=== PATIENT | female | born 1950 | race Two or more races ===

== ENCOUNTER 2023-09-30 16:46 | Observation (INO) | payer OTHER ==
[2023-09-30 17:22] VITALS: BMI 25.7
[2023-09-30 21:28] LABS: BASO % 0.3 % (0-2.0); EOS % 0.3 % (0-4.5); HEMOGLOBIN 11.6 GM/dL (10.7-15.3); LYMPH % 17.6 % (8-40); MCH 25.8 pg (25.7-33.7); MCHC 32.4 g/dl (32.0-36.0); MEAN CELL VOLUME 79.6 fl (80-96); MEAN PLT VOLUME 7.4 fl (7.5-11.1); MONO % 5.4 % (3.8-10.2); NEUT % 76.4 % (42.8-82.8); PLATELET COUNT 464 10^3/uL (134-434); RBC 4.52 M/mm3 (3.60-5.2); RDW 15.1 % (11.6-15.6)
[2023-09-30 21:35] LABS: INR 1.07 (0.83-1.09); PROTHROMBIN TIME (PATIENT) 12.1 SEC (9.7-13.0)
[2023-09-30 21:38] LABS: ACTIVATED PTT 25.3 SECONDS (25.2-36.5)
[2023-09-30 21:48] LABS: POTASSIUM 4.6 mmol/L (3.5-5.1)
[2023-09-30 21:50] LABS: CALCIUM 9.1 mg/dL (8.5-10.1)
[2023-09-30 21:51] LABS: ALBUMIN 2.9 g/dl (3.4-5.0); BLOOD UREA NITROGEN 25.1 mg/dL (7-18)
[2023-09-30 21:55] LABS: CREATININE 1.2 mg/dL (0.55-1.3); TOT PROT 6.7 g/dl (6.4-8.2)
[2023-09-30 21:56] LABS: BILIRUBIN,TOTAL 0.5 mg/dL (0.2-1)
[2023-10-01 01:35] VITALS: TEMP 98.6
[2023-10-01] MEDS: POLYETHYLENE GLYCOL (HEALTHYLAX) 3350 17 GM PACKET PO SCH (06:34)
[2023-10-01] MEDS: PANTOPRAZOLE 40 MG TABLET PO ONE (06:34)
[2023-10-01] MEDS ORDERED: INSULIN ASPART SLIDING SCALE (NOVOLOG) 1 VIAL SQ ONE ×3 (08:16→12:54)
[2023-10-01] MEDS: INSULIN ASPART SLIDING SCALE (NOVOLOG) 1 VIAL SQ SCH (08:20)
[2023-10-01] MEDS ORDERED: PANTOPRAZOLE 40 MG TABLET PO ONE (09:23)
[2023-10-01] MEDS ORDERED: ACETAMINOPHEN 325 MG TABLET (FP) ONE (09:23)
[2023-10-01] MEDS ORDERED: INSULIN (LEVEMIR) 100 UNITS/ML UNITS SQ ONE (09:24)
[2023-10-01] MEDS: PANTOPRAZOLE 40 MG TABLET PO SCH (09:30)
[2023-10-01] MEDS: ACETAMINOPHEN 325 MG TABLET (FP) PO PRN (09:30)
[2023-10-01] MEDS: INSULIN (LEVEMIR) 100 UNITS/ML UNITS SQ SCH (09:30)
[2023-10-01] MEDS ORDERED: ENOXAPARIN NA (PORCINE) 40 MG/0.4 ML DISP.SYRIN SQ SCH (10:00)
[2023-10-01 11:50] LABS: BASO % 1.3 % (0-2.0); EOS % 0.9 % (0-4.5); HEMATOCRIT 34.6 % (32.4-45.2); HEMOGLOBIN 11.3 GM/dL (10.7-15.3); LYMPH % 31.3 % (8-40); MCH 26.3 pg (25.7-33.7); MCHC 32.7 g/dl (32.0-36.0); MEAN CELL VOLUME 80.4 fl (80-96); MEAN PLT VOLUME 7.1 fl (7.5-11.1); MONO % 4.9 % (3.8-10.2); NEUT % 61.6 % (42.8-82.8); PLATELET COUNT 418 10^3/uL (134-434); RDW 14.8 % (11.6-15.6); WHITE BLOOD COUNT 10.9 K/mm3 (4.0-10.0)
[2023-10-01 12:19] LABS: POTASSIUM 4.5 mmol/L (3.5-5.1)
[2023-10-01 12:22] LABS: ALBUMIN 2.8 g/dl (3.4-5.0); BLOOD UREA NITROGEN 22.1 mg/dL (7-18); CALCIUM 9.1 mg/dL (8.5-10.1); MAGNESIUM 2.1 mg/dL (1.8-2.4)
[2023-10-01 12:27] LABS: BILIRUBIN,TOTAL 0.6 mg/dL (0.2-1); TOT PROT 6.3 g/dl (6.4-8.2)
[2023-10-01 15:09] VITALS: BP 133/96; PULSE 81; RESP 18
== END 2023-10-01 15:20 | disposition home or self-care (01) ==
LOC: JER 16:46 → JERBED 10-01 00:02
PROVIDERS: ADMIT Internal Medicine; ATTEND Internal Medicine
PROC: 3E013VG Introduction of Insulin into Subcutaneous Tissue, Percutaneous Approach (ICD-10-PCS; principal; 2023-10-01)
DX: R42 Dizziness and giddiness (principal); G31.84 Mild cognitive impairment of uncertain or unknown etiology; E11.9 Type 2 diabetes mellitus without complications; I10 Essential (primary) hypertension; N28.9 Disorder of kidney and ureter, unspecified; W18.39XA Other fall on same level, initial encounter; Y93.89 Activity, other specified; Y92.002 Bathroom of unspecified non-institutional (private) residence as the place of occurrence of the external cause; M19.90 Unspecified osteoarthritis, unspecified site; R29.6 Repeated falls; R55 Syncope and collapse; Z29.89 Encounter for other specified prophylactic measures
CPT/HCPCS: 0241U-QW; 36415; 70450-TC; 71260-TC; 72125-TC; 74177-TC; 80053; 82962; 83036; 83735; 84100; 84484; 85025; 85610; 85730; 93005; 93010; 93306-TC; 96372; 99285-25; G0378; Q9967

== ENCOUNTER 2024-05-26 12:40 | Inpatient (IN) | payer OTHER ==
[2024-05-26 16:42] LABS: ABSOLUTE IMMATURE GRANULOCYTES 0.02 x10^3/uL (0.0-0.031); BASOPHILS # 0.02 x10^3/uL (0.01-0.08); EOSINOPHIL % 1.3 % (0.7-5.8); HEMATOCRIT 41.5 % (34.1-44.9); HEMOGLOBIN 12.8 g/dL (11.2-15.7); MCHC 30.8 g/dl (32.2-35.5); MEAN CELL VOLUME 87.7 fl (79.4-94.8); MEAN PLT VOLUME 9.6 fl (9.4-12.3); MONOCYTE # 0.48 x10^3/uL (0.24-0.86); MONOCYTE % 6.5 % (4.7-12.5); PLATELET COUNT # 420 x10^3/uL (182-369); RDW 13.4 % (12.4-16.6)
[2024-05-26 16:50] LABS: INR 1.14 (0.83-1.09); PROTHROMBIN TIME (PATIENT) 12.4 SEC (9.7-13.0)
[2024-05-26 16:53] LABS: ACTIVATED PTT 29.7 SECONDS (25.2-36.5)
[2024-05-26 17:04] LABS: POTASSIUM 4.4 mmol/L (3.5-5.1)
[2024-05-26 17:05] LABS: CALCIUM 9.7 mg/dL (8.5-10.1)
[2024-05-26 17:06] LABS: ALBUMIN 3.3 g/dl (3.4-5.0); BLOOD UREA NITROGEN 13.7 mg/dL (7-18)
[2024-05-26 17:09] LABS: CREATININE 0.8 mg/dL (0.55-1.3)
[2024-05-26 17:10] LABS: BILIRUBIN,TOTAL 0.2 mg/dL (0.2-1)
[2024-05-26 18:37] LABS: INR 1.22 (0.83-1.09); PROTHROMBIN TIME (PATIENT) 13.3 SEC (9.7-13.0)
[2024-05-26 19:12] LABS: GAMMA GLUTAMYL TRANSPEPTIDASE 132 U/L (5-85)
[2024-05-26] MEDS: INSULIN ASPART SLIDING SCALE (NOVOLOG) 1 VIAL SQ SCH (21:55)
[2024-05-26] MEDS ORDERED: ENOXAPARIN NA (PORCINE) 40 MG/0.4 ML DISP.SYRIN SQ ONE (21:56)
[2024-05-26 21:59] LABS: EPI CELLS 14 /uL (0-25.1); HYALINE CASTS 0 /uL (0-3.1); URINE APPEARANCE CLEAR; URINE BACTERIA 50 /uL (0-1359); URINE BILIRUBIN NEGATIVE (NEGATIVE); URINE COLOR YELLOW; URINE GLUCOSE (UA) NEGATIVE (NEGATIVE); URINE KETONE NEGATIVE (NEGATIVE); URINE LEUK ESTERASE 1+ (NEGATIVE); URINE NITRITE NEGATIVE (NEGATIVE); URINE PROTEIN 1+ (NEGATIVE); URINE RBC 10 /uL (0-23.9); URINE UROBILINOGEN 0.2 mg/dL (0.2-1.0); URINE WBC 59 /uL (0-25.8)
[2024-05-26] MEDS: SODIUM CHLORIDE 1,000 ML IV SCH (22:07)
[2024-05-26] MEDS: ENOXAPARIN NA (PORCINE) 40 MG/0.4 ML DISP.SYRIN SQ SCH (22:08)
[2024-05-27 08:05] LABS: ABSOLUTE IMMATURE GRANULOCYTES 0.02 x10^3/uL (0.0-0.031); BASOPHILS # 0.03 x10^3/uL (0.01-0.08); EOSINOPHILS # 0.07 x10^3/uL (0.04-0.36); HEMATOCRIT 36.9 % (34.1-44.9); HEMOGLOBIN 11.5 g/dL (11.2-15.7); MCHC 31.2 g/dl (32.2-35.5); MEAN CELL VOLUME 87.6 fl (79.4-94.8); MEAN PLT VOLUME 9.6 fl (9.4-12.3); MONOCYTE % 7.4 % (4.7-12.5); PLATELET COUNT # 385 x10^3/uL (182-369); RDW 13.4 % (12.4-16.6)
[2024-05-27 08:36] LABS: POTASSIUM 4.5 mmol/L (3.5-5.1)
[2024-05-27 08:38] LABS: BLOOD UREA NITROGEN 13.4 mg/dL (7-18); CALCIUM 9.3 mg/dL (8.5-10.1)
[2024-05-27 08:39] LABS: ALBUMIN 2.8 g/dl (3.4-5.0); MAGNESIUM 1.8 mg/dL (1.8-2.4)
[2024-05-27 08:41] LABS: BILIRUBIN,DIRECT 0.2 mg/dL (0.0-0.2)
[2024-05-27 08:42] LABS: CREATININE 0.8 mg/dL (0.55-1.3); PHOSPHOROUS 3.7 mg/dL (2.5-4.9)
[2024-05-27 08:43] LABS: BILIRUBIN,TOTAL 0.4 mg/dL (0.2-1)
[2024-05-27] MEDS: PANTOPRAZOLE 40 MG TABLET PO SCH (09:08)
[2024-05-27] MEDS: POLYETHYLENE GLYCOL (HEALTHYLAX) 3350 17 GM PACKET PO SCH (09:08)
[2024-05-27 11:57] LABS: HCV DIAGNOSTIC IN-HOUSE W/RFLX NON-REACTIVE (NONREACTIVE)
[2024-05-27 15:53] VITALS: BMI 21.0
[2024-05-28 07:35] VITALS: RESP 18
[2024-05-28 10:05] VITALS: BP 105/60; PULSE 79; TEMP 97.3
[2024-05-28 11:29] LABS: ABSOLUTE IMMATURE GRANULOCYTES 0.04 x10^3/uL (0.0-0.031); BASOPHILS # 0.03 x10^3/uL (0.01-0.08); EOSINOPHIL % 3.3 % (0.7-5.8); EOSINOPHILS # 0.25 x10^3/uL (0.04-0.36); HEMATOCRIT 41.1 % (34.1-44.9); HEMOGLOBIN 12.7 g/dL (11.2-15.7); MCHC 30.9 g/dl (32.2-35.5); MEAN CELL VOLUME 88.4 fl (79.4-94.8); MEAN PLT VOLUME 9.5 fl (9.4-12.3); MONOCYTE # 0.47 x10^3/uL (0.24-0.86); MONOCYTE % 6.2 % (4.7-12.5); PLATELET COUNT # 328 x10^3/uL (182-369); RDW 13.4 % (12.4-16.6)
[2024-05-28 11:48] LABS: POTASSIUM 4.2 mmol/L (3.5-5.1)
[2024-05-28 11:49] LABS: ALBUMIN 2.7 g/dl (3.4-5.0)
[2024-05-28 11:51] LABS: CALCIUM 9.2 mg/dL (8.5-10.1)
[2024-05-28 11:52] LABS: ALBUMIN 2.8 g/dl (3.4-5.0); BILIRUBIN,DIRECT 0.1 mg/dL (0.0-0.2); BLOOD UREA NITROGEN 10.7 mg/dL (7-18); MAGNESIUM 1.7 mg/dL (1.8-2.4)
[2024-05-28 11:54] LABS: BILIRUBIN,TOTAL 0.2 mg/dL (0.2-1); TOT PROT 6.1 g/dl (6.4-8.2)
[2024-05-28 11:55] LABS: CREATININE 0.8 mg/dL (0.55-1.3)
[2024-05-28 11:56] LABS: BILIRUBIN,TOTAL 0.2 mg/dL (0.2-1); TOT PROT 6.2 g/dl (6.4-8.2)
== END 2024-05-28 17:00 | disposition home or self-care (01) ==
LOC: JER 12:40 → JERBED 17:45 → J7W 05-27 02:49 → OBSVTOIN 05-27 08:19
PROVIDERS: ADMIT Internal Medicine
DX: K71.8 Toxic liver disease with other disorders of liver (principal); T36.6X5A Adverse effect of rifampicins, initial encounter; C50.911 Malignant neoplasm of unspecified site of right female breast; E11.9 Type 2 diabetes mellitus without complications; I10 Essential (primary) hypertension; R29.6 Repeated falls; R79.89 Other specified abnormal findings of blood chemistry; Z22.7 Latent tuberculosis; K52.89 Other specified noninfective gastroenteritis and colitis; K59.00 Constipation, unspecified
CPT/HCPCS: 36415; 71046-TC-FY; 74176-TC; 74181-TC; 76705-TC; 80053; 80076; 81003; 82140; 82248; 82550; 82962; 82977; 83690; 83735; 84100; 84484; 85025; 85610; 85730; 86480; 86704; 86708; 86803; 87340; 87517; 93005; 93010; 99285-25; G0378

== ENCOUNTER 2024-10-23 11:21 | Observation (INO) | payer OTHER ==
[2024-10-23 11:46] VITALS: BMI 22.6
[2024-10-23 13:32] LABS: MCHC 30.7 g/dl (32.2-35.5); MEAN CELL VOLUME 84.1 fl (79.4-94.8); MEAN PLT VOLUME 10.9 fl (9.4-12.3); RDW 15.8 % (12.4-16.6)
[2024-10-23] MEDS: LACTATED RINGERS SOLUTION 1000 ML INFUS.BAG IV ONE (13:36)
[2024-10-23 13:50] LABS: GLUCOSE,RANDOM 149.0 mg/dL (74-106)
[2024-10-23 13:51] LABS: TOT PROT 6.2 g/dl (6.4-8.2)
[2024-10-23 13:52] LABS: CO2 26.0 mmol/L (21-32)
[2024-10-23 13:53] LABS: ALK PHOS 193.0 U/L (40-150)
[2024-10-23 13:56] LABS: CREATININE 0.96 mg/dL (0.55-1.3); SGOT/AST 27.0 U/L (5-34); SGPT/ALT 37.0 U/L (0-55)
[2024-10-23 16:24] LABS: EPI CELLS 28 /uL (0-25.1); HYALINE CASTS 1 /uL (0-3.1); URINE APPEARANCE CLEAR; URINE BACTERIA 66 /uL (0-1359); URINE BILIRUBIN NEGATIVE (NEGATIVE); URINE COLOR YELLOW; URINE GLUCOSE (UA) NEGATIVE (NEGATIVE); URINE KETONE TRACE (NEGATIVE); URINE LEUK ESTERASE NEGATIVE (NEGATIVE); URINE NITRITE NEGATIVE (NEGATIVE); URINE PROTEIN TRACE (NEGATIVE); URINE RBC 26 /uL (0-23.9); URINE UROBILINOGEN 0.2 mg/dL (0.2-1.0); URINE WBC 5 /uL (0-25.8)
[2024-10-24 00:10] VITALS: RESP 18
[2024-10-24] MEDS: INSULIN ASPART SLIDING SCALE (NOVOLOG) 1 VIAL SQ SCH (06:29)
[2024-10-24 07:55] LABS: EPI CELLS 10 /uL (0-25.1); HYALINE CASTS 2 /uL (0-3.1); URINE APPEARANCE TURBID; URINE BACTERIA >9,000 /uL (0-1359); URINE BILIRUBIN NEGATIVE (NEGATIVE); URINE COLOR ORANGE; URINE GLUCOSE (UA) TRACE (NEGATIVE); URINE KETONE TRACE (NEGATIVE); URINE LEUK ESTERASE 3+ (NEGATIVE); URINE NITRITE POSITIVE (NEGATIVE); URINE PROTEIN 3+ (NEGATIVE); URINE UROBILINOGEN 1.0 mg/dL (0.2-1.0); URINE WBC 2374 /uL (0-25.8)
[2024-10-24 08:28] LABS: ABSOLUTE IMMATURE GRANULOCYTES 0.04 x10^3/uL (0.0-0.031); BASOPHILS # 0.02 x10^3/uL (0.01-0.08); EOSINOPHIL % 1.3 % (0.7-5.8); EOSINOPHILS # 0.12 x10^3/uL (0.04-0.36); MCHC 31.1 g/dl (32.2-35.5); MEAN CELL VOLUME 83.6 fl (79.4-94.8); MEAN PLT VOLUME 12.2 fl (9.4-12.3); MONOCYTE # 1.02 x10^3/uL (0.24-0.86); MONOCYTE % 11.0 % (4.7-12.5); RDW 16.0 % (12.4-16.6)
[2024-10-24 08:42] LABS: URINE RBC 334 /uL (0-23.9); YEAST NONE SEEN (NEGATIVE)
[2024-10-24 09:17] LABS: GLUCOSE,RANDOM 170.0 mg/dL (74-106); TOT PROT 5.0 g/dl (6.4-8.2)
[2024-10-24 09:18] LABS: CO2 26.0 mmol/L (21-32)
[2024-10-24 09:23] LABS: CREATININE 0.8 mg/dL (0.55-1.3); SGOT/AST 19.0 U/L (5-34); SGPT/ALT 24.0 U/L (0-55)
[2024-10-24 09:24] LABS: ALK PHOS 164.0 U/L (40-150)
[2024-10-24] MEDS: PANTOPRAZOLE 40 MG TABLET PO SCH (09:25)
[2024-10-24] MEDS: ANASTROZOLE 1 MG TABLET PO SCH (09:25)
[2024-10-24] MEDS: POLYETHYLENE GLYCOL (HEALTHYLAX) 3350 17 GM PACKET PO SCH (09:31)
[2024-10-24] MEDS: CEFTRIAXONE 1 GM in DEXTROSE 5%-WATER - 50 ML IVPB SCH (10:48)
[2024-10-24] MEDS: MAGNESIUM SULFATE IN WATER 2 GM/50 ML IVPB IVPB ONE (11:29)
[2024-10-25 09:02] VITALS: TEMP 97.3
[2024-10-25] MEDS: LACTATED RINGERS SOLUTION 1,000 ML/1,000 ML INFUS.BAG IV SCH (11:12)
[2024-10-25] MEDS ORDERED: ACETAMINOPHEN 325 MG TABLET (FP) PO PRN (14:16)
[2024-10-25 15:39] VITALS: BP 107/66; PULSE 73
[2024-10-25] MEDS ORDERED: NAPROXEN 500 MG TABLET PO SCH (22:00)
== END 2024-10-25 15:44 | disposition home or self-care (01) ==
LOC: JER 11:21 → JERBED 20:04 → J5S 22:47
PROVIDERS: ADMIT Internal Medicine; ATTEND Student in an Organized Health Care Education/Training Program
PROC: 3E03329 Introduction of Other Anti-infective into Peripheral Vein, Percutaneous Approach (ICD-10-PCS; principal; 2024-10-23)
PROC: 3E013VG Introduction of Insulin into Subcutaneous Tissue, Percutaneous Approach (ICD-10-PCS; 2024-10-23)
PROC: 3E0337Z Introduction of Electrolytic and Water Balance Substance into Peripheral Vein, Percutaneous Approach (ICD-10-PCS; 2024-10-23)
PROC: 3E033GC Introduction of Other Therapeutic Substance into Peripheral Vein, Percutaneous Approach (ICD-10-PCS; 2024-10-23)
DX: R55 Syncope and collapse (principal); C50.911 Malignant neoplasm of unspecified site of right female breast; I10 Essential (primary) hypertension; R42 Dizziness and giddiness; E11.9 Type 2 diabetes mellitus without complications; W18.39XA Other fall on same level, initial encounter; Z90.49 Acquired absence of other specified parts of digestive tract; N28.9 Disorder of kidney and ureter, unspecified; Y93.89 Activity, other specified; Y92.89 Other specified places as the place of occurrence of the external cause; Z79.899 Other long term (current) drug therapy; Z86.11 Personal history of tuberculosis
CPT/HCPCS: 36415; 70450-TC; 71045-TC-FY; 72125-TC; 73030-TC-LT-FY; 80053; 81003; 82962; 83735; 84100; 84484; 85025; 85027; 87086; 93005; 93010; 96361; 96365; 96367; 96372; 99285-25; G0378

== ENCOUNTER 2024-11-22 10:00 | Day surgery (SDC) | payer OTHER ==
[2024-11-22 10:39] LABS: ABSOLUTE IMMATURE GRANULOCYTES 0.03 x10^3/uL (0.0-0.031); BASOPHILS # 0.04 x10^3/uL (0.01-0.08); EOSINOPHIL % 1.4 % (0.7-5.8); EOSINOPHILS # 0.09 x10^3/uL (0.04-0.36); MCHC 30.0 g/dl (32.2-35.5); MEAN CELL VOLUME 86.2 fl (79.4-94.8); MEAN PLT VOLUME 10.9 fl (9.4-12.3); MONOCYTE # 0.45 x10^3/uL (0.24-0.86); MONOCYTE % 6.8 % (4.7-12.5); RDW 17.9 % (12.4-16.6)
[2024-11-22 11:04] LABS: GLUCOSE,RANDOM 241 mg/dL (74-106); TOT PROT 6.1 g/dl (6.4-8.2)
[2024-11-22 11:05] LABS: CO2 27 mmol/L (21-32)
[2024-11-22 11:10] LABS: CREATININE 0.89 mg/dL (0.55-1.3); SGOT/AST 24 U/L (5-34); SGPT/ALT 25 U/L (0-55)
[2024-11-22 11:13] LABS: ALK PHOS 252 U/L (40-150)
[2024-11-22] MEDS: GRANISETRON HCL 1 MG TABLET PO ONE (11:39)
[2024-11-22] MEDS: DEXAMETHASONE 4 MG TABLET (FP) PO ONE (11:39)
[2024-11-22] MEDS: BORTEZOMIB 2.5 MG/ML SUB-Q INJECTION SQ ONE (12:47)
[2024-11-22 16:34] VITALS: BP 129/77; PULSE 97; RESP 18; TEMP 98.3
[2024-11-23 20:07] LABS: IG A QN SERUM. 155 mg/dL (64-422)
[2024-11-24 16:07] LABS: FREE KAP CHN UR 6.82 mg/L (1.17-86.46); KAPPA LAMBDA RATIO URIN 3.97 (1.83-14.26)
[2024-11-25 06:07] LABS: FREE KAP CHN UR 6.78 mg/L (1.17-86.46); KAPPA LAMBDA RATIO URIN 4.29 (1.83-14.26)
== END 2024-11-22 13:00 | disposition home or self-care (01) ==
LOC: JONCCHEMO 10:00 → J7W 10:49 → JONCCHEMO 13:00
PROVIDERS: ATTEND Internal Medicine Hematology & Oncology
DX: Z51.11 Encounter for antineoplastic chemotherapy (principal); C90.00 Multiple myeloma not having achieved remission
CPT/HCPCS: 36415; 80048; 80076; 82784; 83883; 84155; 84165; 85025; 86335; 96401; J9041

== ENCOUNTER 2024-12-27 10:14 | Day surgery (SDC) | payer OTHER ==
[2024-12-27 11:48] LABS: ABSOLUTE IMMATURE GRANULOCYTES 0.08 x10^3/uL (0.0-0.031); BASOPHILS # 0.02 x10^3/uL (0.01-0.08); EOSINOPHIL % 1.5 % (0.7-5.8); EOSINOPHILS # 0.09 x10^3/uL (0.04-0.36); MCHC 29.9 g/dl (32.2-35.5); MEAN CELL VOLUME 87.8 fl (79.4-94.8); MEAN PLT VOLUME 10.9 fl (9.4-12.3); MONOCYTE # 0.38 x10^3/uL (0.24-0.86); MONOCYTE % 6.5 % (4.7-12.5); RDW 19.8 % (12.4-16.6)
[2024-12-27 12:12] LABS: GLUCOSE,RANDOM 164 mg/dL (74-106); TOT PROT 6.1 g/dl (6.4-8.2)
[2024-12-27 12:14] LABS: CO2 28 mmol/L (21-32)
[2024-12-27 12:17] LABS: SGOT/AST 26.0 U/L (5-34); SGPT/ALT 23.0 U/L (0-55)
[2024-12-27 12:18] LABS: CREATININE 0.93 mg/dL (0.55-1.3)
[2024-12-27 12:30] LABS: ALK PHOS 340.0 U/L (40-150)
[2024-12-27] MEDS: DEXAMETHASONE 4 MG TABLET (FP) PO ONE (12:49)
[2024-12-27] MEDS: GRANISETRON HCL 1 MG TABLET PO ONE (12:49)
[2024-12-27] MEDS: BORTEZOMIB 2.5 MG/ML SUB-Q INJECTION SQ ONE (12:59)
[2024-12-27 16:19] VITALS: BP 98/66; PULSE 80; RESP 18; TEMP 98.3
[2024-12-28 19:06] LABS: FREE KAPPA,SERUM 9.5 mg/L (3.3-19.4)
[2024-12-28 20:06] LABS: IG A QN SERUM. 109 mg/dL (64-422)
== END 2024-12-27 13:15 | disposition home or self-care (01) ==
LOC: J7W 10:14 → JONCCHEMO 10:14
PROVIDERS: ATTEND Internal Medicine Hematology & Oncology
DX: Z51.11 Encounter for antineoplastic chemotherapy (principal); C90.00 Multiple myeloma not having achieved remission
CPT/HCPCS: 36415; 80048; 80076; 82784; 83883; 84155; 84165; 85025; 96401; J9041

== ENCOUNTER 2025-01-03 10:14 | Day surgery (SDC) | payer OTHER ==
[2025-01-03] MEDS: ZOLEDRONIC ACID 4 MG in SODIUM CHLORIDE 100 ML IVPB ONE (10:36)
[2025-01-03 10:51] VITALS: RESP 20; TEMP 97.8
[2025-01-03] MEDS: GRANISETRON HCL 1 MG TABLET PO ONE (11:20)
[2025-01-03] MEDS: DEXAMETHASONE 4 MG TABLET (FP) PO ONE (11:21)
[2025-01-03] MEDS: BORTEZOMIB 2.5 MG/ML SUB-Q INJECTION SQ ONE (11:21)
[2025-01-03 14:20] VITALS: BP 129/48; PULSE 85
== END 2025-01-03 12:00 | disposition home or self-care (01) ==
LOC: JONCCHEMO 10:14
PROVIDERS: ATTEND Internal Medicine Hematology & Oncology
PROC: 3E033GC Introduction of Other Therapeutic Substance into Peripheral Vein, Percutaneous Approach (ICD-10-PCS; principal; 2025-01-03)
PROC: 3E013GC Introduction of Other Therapeutic Substance into Subcutaneous Tissue, Percutaneous Approach (ICD-10-PCS; 2025-01-03)
DX: Z51.11 Encounter for antineoplastic chemotherapy (principal)
CPT/HCPCS: J3489; J9041